=== PATIENT | female | born 1985 | race Caucasian/White ===

== ENCOUNTER 2017-01-23 18:41 | Emergency (ER) | payer SELFPAY ==
[~2017-01-23] VITALS: Ht 154.9 cm; Wt 59.8 kg
[2017-01-23] MEDS ORDERED: ONDANSETRON 2MG/ML, 2ML ONE (19:30)
[2017-01-23] MEDS ORDERED: SODIUM CHLORIDE FLUSH 10ML SYR IVF ONE (19:30)
[2017-01-23] MEDS ORDERED: FAMOTIDINE 20 MG/2 ML ONE (19:30)
[2017-01-23] MEDS ORDERED: SODIUM CHLORIDE 0.9% 1,000ML IVBOLUS ONE (19:30)
[2017-01-23] MEDS ORDERED: ONDANSETRON 2MG/ML, 2ML IVPush ONE (19:30)
[2017-01-23] MEDS ORDERED: FAMOTIDINE 20 MG/2 ML IVP ONE (19:30)
[2017-01-23 19:32] LABS: HEMATOCRIT 39.8 % (34.6-47.8); WHITE BLOOD COUNT 7.4 x10^3/uL (3.4-10)
[2017-01-23 19:44] LABS: ASPARTATE AMINO TRANSFERASE 10 U/L (15-37); BLOOD UREA NITROGEN 11 mg/dL (7-18)
[2017-01-23] MEDS ORDERED: MORPHINE SULFATE 4 MG/ML, 1ML ONE (20:22)
[2017-01-23] MEDS ORDERED: MORPHINE SULFATE 4 MG/ML, 1ML IVPush PRN (20:30)
[2017-01-23] MEDS ORDERED: OMNIPAQUE 350 MG/ML, 100ML BOTTLE ONE (20:59)
[2017-01-23 22:05] VITALS: BP 119/70
== END 2017-01-23 22:36 | disposition home or self-care (01) ==
LOC: ED 21:49
DX: R10.13 Epigastric pain (principal); R10.12 Left upper quadrant pain; E11.9 Type 2 diabetes mellitus without complications; Z79.4 Long term (current) use of insulin; F17.200 Nicotine dependence, unspecified, uncomplicated; F15.10 Other stimulant abuse, uncomplicated; F11.10 Opioid abuse, uncomplicated
CPT/HCPCS: 36415; 74177; 76700; 80053; 81003; 83690; 84703; 85025; 96361; 96374; 96375; 99285; J2405; J7030; Q9967; S0028

== ENCOUNTER 2018-05-17 14:18 | Emergency (ER) | payer MEDICAID, OTHER ==
[~2018-05-17] VITALS: Ht 154.9 cm; Wt 65.4 kg
[2018-05-17 14:25] VITALS: BP 116/77
[2018-05-17] MEDS ORDERED: AZITHROMYCIN 250 MG TABLET PO ONE (14:30)
[2018-05-17] MEDS ORDERED: CEFTRIAXONE 250 MG IM ONE (14:30)
[2018-05-17 15:17] LABS: CULTURE INDICATED? YES; MICROSCOPIC INDICATED
--- NOTE | 2018-05-17 15:27 | NUR ---
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
--- NOTE | 2018-05-17 15:40 | NUR ---
Assumed care of patient. C/O white foul-smelling vaginal discharge. Patient reports known exposure to gonorrhea and states, "this feels the same as the last time I got an STD. Denies pelvic pain, sores, or itching. Will continue to monitor.
[2018-05-17] MEDS ORDERED: AZITHROMYCIN 500 MG TABLET ONE (16:11)
[2018-05-17] MEDS ORDERED: CEFTRIAXONE 250 MG ONE (16:11)
--- NOTE | 2018-05-17 16:59 | NUR ---
LATE ENTRY FOR 1649. TASK RN: PT EDUCATED REGARDING TO CALL ED AT 1999 FOR RESULTS AND TO MAKE SURE RX DOESN'T NEED TO BE CALLED IN. PT VERBALIZED UNDERSTANDING. PT ASKED TO WAIT FOR D/C PAPERS.
--- NOTE | 2018-05-17 17:00 | NUR ---
THIS RN BACK TO ROOM TO GIVE PT D/C PAPERWORK. PT OUT OF ROOM BEFORE PAPERWORK GIVEN TO PT. WENT TO D/C TO LOOK FOR PT. PT WAS OUTSIDE GETTING INTO VEHICLE TO LEAVE. Addendum: 05/17/18 at 1704 by JANINE TASK RN. PT ALSO LEFT WITH ALL PERSONAL BELONGINGS.
[2018-05-17 17:32] LABS: WET PREP WBCS MODERATE (FEW)
[2018-05-17 17:46] LABS: CLUE CELLS PRESENT (NONE SEEN)
== END 2018-05-17 17:04 | disposition home or self-care (01) ==
LOC: ED 17:00
DX: A56.02 Chlamydial vulvovaginitis (principal); A54.02 Gonococcal vulvovaginitis, unspecified; A59.9 Trichomoniasis, unspecified; N76.0 Acute vaginitis
CPT/HCPCS: 81001; 81025; 87077; 87086; 87186; 87210; 87491; 87591; 87808; 96372; 99283; J0696

== ENCOUNTER 2018-09-16 05:38 | Emergency (ER) | payer MEDICAID ==
[~2018-09-16] VITALS: Ht 162.6 cm; Wt 68.0 kg
[2018-09-16 05:41] VITALS: BP 130/92
--- NOTE | 2018-09-16 05:50 | NUR ---
PT HERE FOR DENTAL PAIN FOR PAST 3 MONTHS.
== END 2018-09-16 06:23 | disposition home or self-care (01) ==
LOC: ED 06:18
DX: K02.9 Dental caries, unspecified (principal); E11.9 Type 2 diabetes mellitus without complications; F17.210 Nicotine dependence, cigarettes, uncomplicated
CPT/HCPCS: 99283

== ENCOUNTER 2018-09-27 04:01 | Emergency (ER) | payer MEDICAID ==
[~2018-09-27] VITALS: Ht 162.6 cm; Wt 64.6 kg
[2018-09-27] MEDS ORDERED: BACITRACIN ZINC OINT 500U/GM, 0.9 GM ONE (04:49)
[2018-09-27 05:07] VITALS: BP 121/72
== END 2018-09-27 05:10 | disposition home or self-care (01) ==
LOC: ED 05:01
DX: L03.115 Cellulitis of right lower limb (principal)
CPT/HCPCS: 82962; 99283

== ENCOUNTER 2019-05-01 07:41 | Emergency (ER) | payer MEDICAID ==
[~2019-05-01] VITALS: Ht 162.6 cm; Wt 67.0 kg
[2019-05-01 07:43] VITALS: BP 124/87
[2019-05-01] MEDS ORDERED: LIDOCAINE-MPF 1%, 5ML ONE (08:01)
[2019-05-01] MEDS ORDERED: LIDOCAINE-MPF 1%, 5ML INFIL ONE (08:30)
--- NOTE | 2019-05-01 08:42 | NUR ---
Patient given discharge instructions and Rx, they have confirmed that they understand the instructions. Patient ambulatory with steady gait.
== END 2019-05-01 08:42 | disposition home or self-care (01) ==
LOC: ED 08:22
DX: L02.414 Cutaneous abscess of left upper limb (principal); E11.9 Type 2 diabetes mellitus without complications
CPT/HCPCS: 10060; 99283